=== PATIENT | male | born 1960 | race Caucasian/White ===

== ENCOUNTER 2021-08-28 06:16 | Inpatient (IN) ==
[2021-08-28] MEDS ORDERED: *HR* Propofol 200 MG/20 ML VIAL IVP ONE (06:54)
[2021-08-28] MEDS ORDERED: Albuterol 2.5 MG/3 ML NEBULIZER IH PRN (06:55)
[2021-08-28] MEDS ORDERED: CeFAZolin Syr 3,000MG/30 ML 3,000 MG/30 ML SYRINGE IVPB ONE (06:55)
[2021-08-28] MEDS ORDERED: *HR* Vasopressin 20 UNIT/ML VIAL ONE (06:55)
[2021-08-28] MEDS ORDERED: Ondansetron 4 MG/2 ML VIAL ONE (06:57)
[2021-08-28] MEDS ORDERED: *HR* Phenylephrine 10 MG/ML VIAL ONE (06:57)
[2021-08-28] MEDS ORDERED: *HR* Rocuronium Bromide 50 MG/5 ML VIAL ONE ×2 (06:57→08:52)
[2021-08-28] MEDS ORDERED: *HR* Succinylcholine 200 MG/10 ML VIAL IVP ONE (06:57)
[2021-08-28] MEDS ORDERED: Lidocaine -MPF 2% 2 ML VIAL ONE (06:57)
[2021-08-28] MEDS ORDERED: Heparin 1,000 UNITS/500 mL 500 ML ONE (06:57)
[2021-08-28] MEDS ORDERED: Ringers Solution, Lactated 1,000 ML IVC SCH (07:00)
[2021-08-28] MEDS ORDERED: *HR* FentaNYL (PF) 100 MCG/2 ML VIAL ONE (07:08)
[2021-08-28] MEDS ORDERED: *HR* Remifentanil 2 MG VIAL IVP ONE (07:09)
[2021-08-28] MEDS ORDERED: *HR* Midazolam HCl 2 MG/2 ML VIAL ONE (07:14)
[2021-08-28] MEDS ORDERED: Dexmedetomidine HCl 0 MCG/0 ML MLS IVC ONE (07:17)
[2021-08-28] MEDS ORDERED: Iopamidol - 300 100 ML INFUS..BTL ONE ×2 (07:20→07:36)
[2021-08-28] MEDS ORDERED: Heparin 1,000 UNITS/500 mL 2,500 ML ONE (07:20)
[2021-08-28] MEDS ORDERED: ceFAZolin 1,000 MG, Sodium Chloride IRRigation 1,000 ML IR ONE (07:30)
[2021-08-28] MEDS ORDERED: EPHEDrine 50 MG/ML VIAL ONE (09:12)
[2021-08-28] MEDS ORDERED: *HR* HYDROMORPHONE 2 MG/ML VIAL ONE (11:18)
[2021-08-28] MEDS: *HR* FentaNYL (PF) 100 MCG/2 ML VIAL IVP PRN ×4 (11:55→12:10)
[2021-08-28] MEDS ORDERED: *HR* HYDROcodone/Acet 5/325 mg TABLET PO PRN (12:46)
[2021-08-28] MEDS ORDERED: Acetaminophen 325 MG TABLET PO PRN (12:46)
[2021-08-28] MEDS ORDERED: *HR* OxyCODONE Immed Rel 5 MG TABLET PO PRN (12:46)
[2021-08-28] MEDS ORDERED: Naloxone 0.4 MG/ML INJ IVP PRN (12:46)
[2021-08-28] MEDS ORDERED: *HR* Labetalol 20 MG/4 ML SYRINGE IVP PRN (12:46)
[2021-08-28] MEDS ORDERED: Ondansetron 4 MG/2 ML VIAL IVP PRN (12:46)
[2021-08-28] MEDS ORDERED: 0.9 % Sodium Chloride 1,000 ML IVC SCH (12:46)
[2021-08-28] MEDS: CeFAZolin 2,000 MG/120 ML BAG IVPB SCH (16:19)
[2021-08-29] MEDS: CeFAZolin 2,000 MG/120 ML BAG IVPB SCH ×2 (00:50→07:53)
[2021-08-29 08:19] LABS: Hemoglobin 13.4 g/dL (12.9-16.9); White Blood Count 25.7 K/mcL (4.3-11.1)
[2021-08-29 08:21] LABS: Mean Corpuscular HGB Conc 33.5 g/dL (31.6-35.5); Mean Corpuscular Hemoglobin 31.1 pg (28.0-33.3); Mean Corpuscular Volume 92.8 fL (83.0-100.0); Mean Platelet Volume 10.5 fL (9.4-12.4); Platelet Count 228 K/mcL (140-400); Red Blood Count 4.31 M/mcL (4.19-5.50); Red Cell Distribution Width 12.2 % (11.5-14.5)
[2021-08-29 08:40] LABS: BUN/Creatinine Ratio 16 (6-26); Blood Urea Nitrogen 13 mg/dL (8-23); Calcium 8.6 mg/dL (8.6-10.3); Carbon Dioxide 23 mEq/L (23-29); Chloride 106 mEq/L (98-107); Glucose 150 mg/dL (70-105); Osmolality,Calculated 285 (280-300); Potassium 4.1 mEq/L (3.5-5.1); Sodium 136 mEq/L (136-145); eGFR For African Americans > 60 (> 60); eGFR For Non-African Americans > 60 (> 60)
[2021-08-29 09:11] LABS: Lymphocytes # 0.8 K/mcL (0.6-4.6); Neutrophils # 23.9 K/mcL (1.6-8.9); Platelet Estimate Normal (Normal)
[2021-08-29 11:35] VITALS: BP 97/53; PULSE 81; TEMP 98.1; O2SAT 94
== END 2021-08-29 13:56 | disposition home or self-care (01) | DRG 269 ==
LOC: SAMDAY 06:16 → 2NNU 12:40
PROVIDERS: ADMIT Surgery Vascular Surgery; ATTEND Surgery Vascular Surgery